=== PATIENT | female | born 1975 | race African-American/Black ===

== ENCOUNTER 2020-05-13 11:45 | Emergency (ER) | payer MEDICAID ==
[~2020-05-13] VITALS: Ht 177.8 cm; Wt 77.1 kg
--- NOTE | 2020-05-13 12:37 | Emergency Room Report ---
History of Present Illness General Chief Complaint: Earache Source: Patient Present Illness HPI 45-year-old female with no signal past medical history here complaining of 3 days of bilateral earache especially right ear, sinus pressure, and complete loss of smell. Denies any cough and shortness of breath at this time. Denies diarrhea, headache and dizziness. Has not taken medication for symptom relief. Denies tobacco smoking drug use. Appears to be stable with stable vital signs. Denies . Allergies: Coded Allergies: No Known Allergies (Unverified , 05/13/20) COVID-19 Screening Contact w/high risk pt: No Experienced COVID-19 symptoms?: No COVID-19 Testing performed VEHICLE WASHER: No Patient History Past Medical History: see triage record Past Surgical History: none Pertinent Family History: none Now: No Immunizations: UTD Reviewed Nursing Documentation: PMH: Agreed; PSxH: Agreed Nursing Documentation-PMH Past Medical History: No Stated History Review of Systems All Other Systems: negative except mentioned in HPI Physical Exam Vital Signs Date Time Temp Pulse Resp B/P (MAP) Pulse Ox O2 Delivery O2 Flow Rate FiO2 05/13/20 12:31 97.9 82 16 140/80 (100) 98 Room Air Sp02 EP Interpretation: reviewed, normal General Appearance: no apparent distress, alert, GCS 15, non-toxic Head: normocephalic, atraumatic Eyes: bilateral eye normal inspection, bilateral eye PERRL ENT: no angioedema, other - Right TM bulging Neck: full range of motion, no meningismus, no bony tend, supple/symm/no masses Respiratory: no respiratory distress, no retraction, no accessory muscle use Cardiovascular #1: regular rate, rhythm, no edema Gastrointestinal: non tender Rectal: deferred Musculoskeletal: back normal Neurologic: alert, motor strength/tone normal, oriented x3, sensory intact, responsive, speech normal Psychiatric: judgement/insight normal, memory normal, mood/affect normal, no suicidal/homicidal ideation Skin: no rash Lymphatic: no adenopathy Medical Decision Making PA Attestation All diagnosis and treatment plans were discussed and reviewed by my supervising physician Dr. Izaguirre Diagnostic Impression: Primary Impression: Suspected COVID-19 virus infection Additional Impression: Otitis media ER Course 45-year-old female with no signal past medical history here complaining of 3 days of bilateral earache especially right ear, sinus pressure, and complete loss of smell. Denies any cough and shortness of breath at this time. Denies diarrhea, headache and dizziness. Has not taken medication for symptom relief. Denies tobacco smoking drug use. Appears to be stable with stable vital signs. Denies . Ddx considered but are not limited to: strep pharyngitis, URI, tonsillitis, peritonsillar abscess, influneza, otitis media, otitis externa, suspected coronavirus Vital signs: are WNL, pt. is afebrile H&PE are most consistent with: Suspected coronavirus, otitis media ORDERS: Azithromycin, prednisone ED INTERVENTIONS: None required at this time. DISCHARGE: At this time pt. is stable for d/c to home. Will provide printed patient care instructions, and any necessary prescriptions. Care plan and follow up instructions have been discussed with the patient prior to discharge. Advised patient to be tested for COVID-19, quarantine for 2 weeks, take m edication as directed, if worsening symptoms return to the emergency room resources were provided to patient Last Vital Signs Date Time Temp Pulse Resp B/P (MAP) Pulse Ox O2 Delivery O2 Flow Rate FiO2 05/13/20 12:31 97.9 82 16 140/80 (100) 98 Room Air Disposition: HOME, SELF-CARE Condition: Stable Scripts Prednisone* (PREDNISONE*) 20 Mg Tablet 40 MG ORAL DAILY for 5 Days, #10 TAB Prov: Brenden Chandler 05/13/20 Azithromycin* (ZITHROMAX*) 250 Mg Tablet 250 MG ORAL DAILY, #6 TAB 0 Refills Take two tables once daily for 1 day, then one tablet once daily for 4 days. Prov: Brenden Chandler 05/13/20 Patient Instructions: Otitis Media, Adult, [id number] Additional Instructions: I recommend you get tested for Covid, quarantine for 14 days, take medication as directed, if worsening symptoms return to the emergency room Brenden Chandler May 13, 2020 12:37
[2020-05-13] MEDS ORDERED: ZITHROMAX250 MG ORAL (12:38)
[2020-05-13] MEDS ORDERED: PREDNISONE20 MG ORAL (12:38)
[2020-05-13 13:03] VITALS: BP 140/80
[2020-05-13 13:04] VITALS: BP 130/80
--- NOTE | 2020-05-13 13:06 | NUR ---
Examined by kelby olivera patient is to be discharged home with instruction and rx instruction given to go get covid testind done
== END 2020-05-13 13:07 | disposition home or self-care (01) ==
LOC: EMR 12:40
DX: R43.9 Unspecified disturbances of smell and taste (principal); H66.91 Otitis media, unspecified, right ear
CPT/HCPCS: 99282